=== PATIENT | female | born 1940 | race Caucasian/White ===

== ENCOUNTER → 2018-01-17 | Outpatient (CLI) | payer MEDICARE ==
[~2018-01-17] MED LIST: ALLO-119 PO; ASPI-715 PO; ATOR40TA24 PO; ATOR40TA69 PO; ATR10 PO; CAN32 PO; COL0.6 PO; GABA-549 PO; HYDR1TAB PO; IBUP-1687 PO; LOSA-57 PO; METF-420 PO; PIO15 PO; PRE10 PO; [UNRECOGNIZED DRUG - CODE] PO
== END ==
LOC: LAB 09:00
PROVIDERS: ATTEND Internal Medicine
DX: E03.9 Hypothyroidism, unspecified (principal); E11.9 Type 2 diabetes mellitus without complications; I10 Essential (primary) hypertension
CPT/HCPCS: 36415; 81001; 82310; 82374; 82435; 82565; 82947; 83036; 84132; 84295; 84443; 84520

== ENCOUNTER → 2018-01-30 | Outpatient (CLI) | payer MEDICARE ==
[~2018-01-30] MED LIST changes: +LOSA-54 PO; -METF-420 PO; +METF-421 PO; +PREG50CA48 PO
--- NOTE | 2018-01-30 15:55 | RADIOLOGY IMAGING REPORT ---
FACILITY: [facility] - [place] PATIENT NAME: Evelyn Diez : 1940 MR: [id number] V: [id number] EXAM DATE: ORDERING PHYSICIAN: VICENTE ROLAND TECHNOLOGIST: Location: [facility] - [place] Patient: Evelyn Diez : 1940 Visit/Account:[id number] Date of Sevice: 01/30/2018 DEXA Scan Clinical history: Postmenopausal screening. Comparison: None available. LUMBAR SPINE: The bone mineral density (BMD) measured from L1-L4 correlates with a Z-score 2.5 and a T-score of 1.2 which is Normal as defined by the World Health Organization. The corresponding risk of fracture in the lumbar spine is Not increased compared with a young adult reference population. HIP: Bone mineral density (BMD) measured in the Left total hip region correlates with a Z-score 0.6 and a T-score of -1 which is Normal as defined by the World Health Organization. The corresponding risk of fracture in the hip is 2 times increased compared with a young adult reference population. T score left femoral neck -1.3 Bone mineral density (BMD) measured in the Femoral Neck region measures 0.857 g/cm2. Impression: 1. Lumbar spine: Normal. 2. Left Hip: Normal. 3. Femoral Neck: Bone Mineral Density is 0.857 g/cm2 The next DEXA scan of this patient should include the following sites: L1-L4 and the left hip. FRAX? WHO Fracture Risk Assessment Tool link: <http://www.shef.ac.uk/FRAX/tool.jsp?locationValue=9> PLEASE NOTE: 1) The World Health Organization defines low BMD as follows: T-score Normal > -1 Osteopenia < -1 and > -2.5 Osteoporosis < -2.5 without fractures Established osteoporosis < -2.5 with fractures 2) In general, you may wish to consider: Diagnosis Treatment Follow-up DEXA Normal BMD Prevention 2-3 years Osteopenia Prevention/therapy 1-2 years Osteoporosis Therapy Yearly 3) Fracture risk estimated from the T-score is more accurate for vertebral fractures (often spontane ous) than for hip fractures. Report Dictated By: Marta Albert MD at 01/30/2018 3:50 PM Report E-Signed By: Marta Albert MD at 01/30/2018 3:51 PM WSN:[email or web address]
--- NOTE | 2018-01-31 11:15 | RADIOLOGY IMAGING REPORT ---
FACILITY: [facility] - [place] PATIENT NAME: FIDELIA DAMIAN : [id number] MR: [id number] V: [id number] EXAM DATE: ORDERING PHYSICIAN: VICENTE ROLAND TECHNOLOGIST: Deonna Noriega PROCEDURE:BILATERAL DIGITAL SCREENING MAMMOGRAM WITH CAD ASSISTED INTERPRETATION & 3D TOMOSYNTHESIS COMPARISON:None. INDICATIONS:Postmenopausal, SCREENING FINDINGS: Mildly heterogeneous fibroglandular tissue is seen throughout the breasts. Very dense vascular calcifications are seen bilaterally. There is an ovoid nodular density in the upper portion of the Left breast on the Left MLO view for which Left breast Ultrasound is recommended. DIAGNOSTIC CATEGORY 0--INCOMPLETE: NEED ADDITIONAL IMAGING EVALUATION. RECOMMENDATIONS: ULTRASOUND: LEFT BREAST. IMPRESSION: BIRADS 0: Incomplete Left breast Ultrasound recommended as described. Dictated by: Marta Albert M.D. on 01/30/2018 at 15:22 Transcribed by: TOMMY on 01/31/2018 at 8:41 Approved by: Marta Albert M.D. on 01/31/2018 at 11:14 [facility]
== END ==
LOC: MAMO 01:46
PROVIDERS: ATTEND Emergency Medicine
DX: Z13.820 Encounter for screening for osteoporosis (principal); Z12.31 Encounter for screening mammogram for malignant neoplasm of breast; R92.8 Other abnormal and inconclusive findings on diagnostic imaging of breast; Z78.0 Asymptomatic menopausal state
CPT/HCPCS: 77063; 77067; 77080

== ENCOUNTER → 2018-02-01 | Outpatient (CLI) | payer MEDICARE ==
--- NOTE | 2018-02-02 10:42 | RADIOLOGY IMAGING REPORT ---
FACILITY: [facility] - [place] PATIENT NAME: FIDELIA DAMIAN : [id number] MR: [id number] V: [id number] EXAM DATE: [id number] ORDERING PHYSICIAN: VICENTE ROLAND TECHNOLOGIST: Yosi Stephens PROCEDURE:US LEFT BREAST COMPARISON:Prior mammogram 01/30/18 INDICATIONS:further evaluation FINDINGS: In the 11:30 position of the Left breast approximately 2cm from the nipple there is a well circumscribed cyst measuring 4.3mm in diameter. This likely accounting for mammographic findings. DIAGNOSTIC CATEGORY 2--BENIGN FINDING. RECOMMENDATIONS: ROUTINE MAMMOGRAM AND CLINICAL EVALUATION. IMPRESSION: BIRADS 2: Benign finding There is a 4.3mm cyst 11:30 position of the Left breast 2cm from the nipple likely accounting for the mammographic findings. Dictated by: Marta Albert M.D. on 02/01/2018 at 14:30 Transcribed by: TOMMY on 02/01/2018 at 15:09 Approved by: Marta Albert M.D. on 02/02/2018 at 10:41 [facility]
== END ==
LOC: US 07:07
PROVIDERS: ATTEND Emergency Medicine
DX: N60.02 Solitary cyst of left breast (principal)

== ENCOUNTER → 2018-08-08 | Outpatient (CLI) | payer MEDICARE ==
[~2018-08-08] MED LIST changes: -METF-421 PO; +METF-452 PO
[2018-08-08 09:43] LABS: PLATELET COUNT, AUTOMATED 226 K/uL (150-450)
== END ==
LOC: LAB 08:58
PROVIDERS: ATTEND Emergency Medicine
DX: E11.9 Type 2 diabetes mellitus without complications (principal)
CPT/HCPCS: 36415; 82465; 83036; 83718; 84478; 85025

== ENCOUNTER → 2018-08-21 | Outpatient (CLI) | payer MEDICARE ==
[~2018-08-21] MED LIST changes: +PRAV40TA78 PO; +PREG100C44 PO
--- NOTE | 2018-08-21 15:34 | RADIOLOGY IMAGING REPORT ---
FACILITY: [facility] - [place] PATIENT NAME: Evelyn Diez : 1940 MR: [id number] V: [id number] EXAM DATE: ORDERING PHYSICIAN: VICENTE ROLAND TECHNOLOGIST: Location: [facility] - [place], [place] Patient: Evelyn Diez : 1940 Visit/Account:[id number] Date of Sevice: 08/21/2018 Exam type: ARTERIAL BILAT LOWER EXT History: Lowr extremity pain Comparison: None. Findings: Right lower extremity: Peak systolic velocities in the right lower extremity arteries are as follows listed in centimeters per second PALEOLOGY PROFESSOR: 72.9 Profunda femoral: 69.5 SFA proximal: 89.2 SFA mid: 68.6 SFA distal: 64.2 Popliteal proximal: 49.2 Popliteal distal: 61.8 Peroneal: 36.6 Posterior tibial: 53.2 Anterior tibial: 57.5 Dorsalis pedis: 45.2 Left lower extremity: Systolic velocities in the left lower extremity arteries are as follows listed in centimeters per second PALEOLOGY PROFESSOR: 110 Profunda femoral: 101 SFA proximal: 61.3 SFA mid: 82 SFA distal: 74.3 Popliteal proximal: 73.6 Popliteal distal: 106 Peroneal: 36 Posterior tibial: 46.3 Anterior tibial: 64.4 Dorsalis pedis 18.1 There appear to be a small amount of calcified plaque in the calf vessels bilaterally Incidentally noted are bilateral fluid collections in the popliteal fossae likely popliteal cysts IMPRESSION: 1. Peak systolic velocities in the bilateral lower extremity arterial tree as described above. Ther e appear to be a small amount of calcified plaque in the calf vessels bilaterally. Bilateral fluid collections in the popliteal fossae likely popliteal cyst Report Dictated By: Marta Albert MD at 08/21/2018 2:59 PM Report E-Signed By: Marta Albert MD at 08/21/2018 3:30 PM WSN:[id number]
== END ==
LOC: US 03:43
PROVIDERS: ATTEND Emergency Medicine
DX: M79.606 Pain in leg, unspecified (principal)
CPT/HCPCS: 93925

== ENCOUNTER → 2018-10-02 | Outpatient (CLI) | payer MEDICARE | LOC: LAB 14:28 | PROVIDERS: ATTEND Emergency Medicine | DX: D75.89 Other specified diseases of blood and blood-forming organs (principal) | CPT/HCPCS: 36415; 82607 ==

== ENCOUNTER → 2019-01-23 | Outpatient (CLI) | payer MEDICARE ==
[~2019-01-23] MED LIST changes: +CYAN20003 PO
== END ==
LOC: LAB 09:56
PROVIDERS: ATTEND Emergency Medicine
DX: E53.8 Deficiency of other specified B group vitamins (principal); E78.5 Hyperlipidemia, unspecified; E11.9 Type 2 diabetes mellitus without complications; I10 Essential (primary) hypertension
CPT/HCPCS: 36415; 82040; 82247; 82310; 82374; 82435; 82465; 82565; 82607; 82947; 83036; 83718; 84075; 84132; 84155; 84295; 84450; 84460; 84478; 84520

== ENCOUNTER → 2019-03-12 | Outpatient (CLI) | payer MEDICARE ==
[~2019-03-12] MED LIST changes: +LOSA-51 PO; +TRAM-420 PO
== END ==
LOC: LAB 08:26
PROVIDERS: ATTEND Emergency Medicine
DX: I10 Essential (primary) hypertension (principal)
CPT/HCPCS: 36415; 82310; 82374; 82435; 82565; 82947; 84132; 84295; 84520